=== PATIENT | male | born 1950 | race African-American/Black ===

== ENCOUNTER 2020-03-02 12:25 | Emergency (ER) | payer MEDICARE, MEDICAID, OTHER ==
[~2020-03-02] VITALS: Ht 167.6 cm; Wt 64.9 kg
[~2020-03-02 12:25] MED LIST: AMIO200T33 PO; ASPI-543 PO; ATO40T PO; DIGO1TAB35 PO; FURO40TA4 PO; LISI-275 PO; MAGN400C2 PO; METO25TA5 PO; SOTA80TA PO
[2020-03-02 13:06] VITALS: BP 150/89
== END 2020-03-02 14:48 | disposition home or self-care (01) ==
LOC: ER 12:25
DX: U07.1 COVID-19 (principal); J18.9 Pneumonia, unspecified organism; I11.0 Hypertensive heart disease with heart failure; E78.5 Hyperlipidemia, unspecified; I25.10 Atherosclerotic heart disease of native coronary artery without angina pectoris
CPT/HCPCS: 36415; 71045; 87070; 87426; 87880

== ENCOUNTER 2020-03-09 15:18 | Outpatient (CLI) | payer MEDICARE, MEDICAID ==
[2020-03-09 15:27] VITALS: BP 124/71
== END 2020-03-09 15:19 | disposition home or self-care (01) ==
LOC: ER 15:18
PROVIDERS: ATTEND Internal Medicine
DX: I13.0 Hypertensive heart and chronic kidney disease with heart failure and stage 1 through stage 4 chronic kidney disease, or unspecified chronic kidney disease (principal); N18.30 Chronic kidney disease, stage 3 unspecified; I50.43 Acute on chronic combined systolic (congestive) and diastolic (congestive) heart failure; I25.10 Atherosclerotic heart disease of native coronary artery without angina pectoris; E78.5 Hyperlipidemia, unspecified; E03.9 Hypothyroidism, unspecified; D50.9 Iron deficiency anemia, unspecified; Z79.899 Other long term (current) drug therapy

== ENCOUNTER 2020-04-07 07:50 | Inpatient (IN) | payer MEDICARE, MEDICAID, OTHER ==
[~2020-04-07] VITALS: Ht 167.6 cm; Wt 67.5 kg
[2020-04-07] MEDS ORDERED: SODIUM CHLORIDE 0.9% 1,000 ML IV ONE (08:45)
[2020-04-07 09:05] LABS: Basophils # (auto) 0.1 10 ^3/uL (0-0.2); Basophils % (auto) 1.2 % (0.0-2.0); Eosinophils # (auto) 0.3 10 ^3/uL (0-0.8); Eosinophils % (auto) 2.7 % (0.0-7.0); Hematocrit 33.3 % (41.0-53.0); Hemoglobin 10.6 g/dL (13.5-17.5); Lymphocytes % (auto) 20.8 % (10.0-50.0); Mean Corpuscular Hemoglobin 24.1 pg (28.0-32.0); Mean Corpuscular Hgb Conc. 31.9 g/dL (32.0-36.0); Mean Corpuscular Volume 75.6 fL (80.0-100.0); Monocytes # (auto) 0.8 10 ^3/uL (0-1.3); Monocytes % (auto) 8.7 % (0.0-12.0); Neutrophils # (auto) 6.3 10 ^3/uL (1.6-8.6); Neutrophils % (auto) 66.6 % (37.0-80.0); Nucleated Red Blood Cells % 0.1 %; Platelet Count (auto) 293 10^3/uL (140-450); Red Cell Distribution Width 19.8 % (11.8-14.3); White Blood Cell 9.5 10^3/uL (4.4-10.8)
[2020-04-07 09:10] LABS: INR 1.38 (0.9-1.15); Partial Thromboplastin Time 28.3 sec (23.0-31.2)
[2020-04-07 09:13] LABS: Albumin 2.7 g/dL (3.4-5.0); BUN/Creatinine Ratio 13.4; Calcium 8.2 mg/dL (8.5-10.1); Magnesium 1.6 mg/dL (1.6-2.6); Potassium 3.8 mmol/L (3.5-5.1)
[2020-04-07 09:22] LABS: Bilirubin, Total 0.5 mg/dL (0.2-1.0); Total Protein 6.6 g/dL (6.4-8.2)
[2020-04-07 10:51] LABS: Urine Bacteria NONE SEEN /hpf (None Seen); Urine Blood Negative /uL (Negative); Urine Hyaline Cast MANY /lpf (0 - 2); Urine Mucus FEW (None Seen); Urine Specific Gravity 1.018 (1.001-1.035); Urine WBC 7 /hpf (0 - 3)
[2020-04-07] MEDS ORDERED: IOHEXOL 350 MG/ML 100ML IJ ONE (11:00)
[2020-04-07] MEDS ORDERED: AZITHROMYCIN 500MG/ 250ML 250 ML IV ONE (11:45)
[2020-04-07] MEDS ORDERED: FUROSEMIDE 40 MG/4 ML VIAL IV ONE (11:45)
[2020-04-07] MEDS ORDERED: cefTRIAXone 1GM/50ML D5W 50 ML IV ONE (11:45)
[2020-04-07] MEDS ORDERED: ACETAMINOPHEN 500 MG TAB PO PRN (13:30)
[2020-04-07] MEDS ORDERED: hydrALAZINE HCL 20 MG/ML VL IV PRN (13:30)
[2020-04-07] MEDS ORDERED: ONDANSETRON HCL 4 MG/2 ML VIAL IV PRN (13:30)
[2020-04-07] MEDS ORDERED: MORPHINE SULF INJ 2 MG/ML SYRINGE 1ML IV PRN ×2 (13:30)
[2020-04-07] MEDS ORDERED: HYDROcodone-ACET 5/325MG TAB PO PRN (13:30)
[2020-04-07] MEDS ORDERED: NITROGLYCERIN 0.4 MG SL TAB SL PRN (13:30)
[2020-04-07] MEDS ORDERED: CARV6.2551 PO (18:03)
[2020-04-07] MEDS: SPIRONOLACTONE 25 MG TAB PO SCH (18:38)
[2020-04-07] MEDS ORDERED: METO-159 PO (18:39)
[2020-04-07] MEDS ORDERED: APIX5TAB PO (18:39)
[2020-04-07] MEDS: FUROSEMIDE 40 MG/4 ML VIAL IV SCH (18:39)
[2020-04-07] MEDS ORDERED: TAMS0.4C36 PO (18:39)
[2020-04-07] MEDS ORDERED: FURO80TA3 PO (18:39)
[2020-04-07] MEDS: ATORVASTATIN 20 MG TAB PO SCH (21:43)
[2020-04-07] MEDS: APIXABAN 5 MG TAB PO SCH (21:43)
[2020-04-07] MEDS: METOPROLOL TARTRATE 25 MG TAB PO SCH (21:43)
[2020-04-07 22:00] VITALS: BP 142/90
[2020-04-08 05:00] VITALS: BP 155/91
[2020-04-08] MEDS: SPIRONOLACTONE 25 MG TAB PO SCH (05:49)
[2020-04-08] MEDS: FUROSEMIDE 40 MG/4 ML VIAL IV SCH ×2 (05:49→17:39)
[2020-04-08 06:39] LABS: Basophils # (auto) 0 10 ^3/uL (0-0.2); Eosinophils # (auto) 0.3 10 ^3/uL (0-0.8); Hemoglobin 10.6 g/dL (13.5-17.5); Lymphocytes # (auto) 1.5 10 ^3/uL (0.4-5.4); Monocytes # (auto) 0.9 10 ^3/uL (0-1.3)
[2020-04-08 06:42] LABS: Basophils % (auto) 0.4 % (0.0-2.0); Eosinophils % (auto) 4.2 % (0.0-7.0); Hematocrit 32.7 % (41.0-53.0); Lymphocytes % (auto) 19.7 % (10.0-50.0); Mean Corpuscular Hemoglobin 24.6 pg (28.0-32.0); Mean Corpuscular Hgb Conc. 32.5 g/dL (32.0-36.0); Mean Corpuscular Volume 75.9 fL (80.0-100.0); Monocytes % (auto) 11.7 % (0.0-12.0); Neutrophils # (auto) 4.8 10 ^3/uL (1.6-8.6); Nucleated Red Blood Cells % 0.1 %; Platelet Count (auto) 309 10^3/uL (140-450); White Blood Cell 7.5 10^3/uL (4.4-10.8)
[2020-04-08 06:58] LABS: Potassium 3.8 mmol/L (3.5-5.1)
[2020-04-08 07:02] LABS: BUN/Creatinine Ratio 18.8; Calcium 8.7 mg/dL (8.5-10.1)
[2020-04-08 07:11] LABS: INR 1.44 (0.9-1.15); Partial Thromboplastin Time 30.5 sec (23.0-31.2)
[2020-04-08 09:00] VITALS: BP 142/77
[2020-04-08] MEDS: AMIODARONE HCL 200 MG TAB PO SCH (10:08)
[2020-04-08] MEDS: APIXABAN 5 MG TAB PO SCH ×2 (10:08→22:10)
[2020-04-08] MEDS: FAMOTIDINE 20 MG TAB PO SCH (10:09)
[2020-04-08] MEDS: LISINOPRIL 10 MG TAB PO SCH (10:09)
[2020-04-08] MEDS: ASCORBIC ACID 1,000 MG TAB PO SCH (10:09)
[2020-04-08] MEDS: METOPROLOL TARTRATE 25 MG TAB PO SCH ×2 (10:10→22:11)
[2020-04-08] MEDS ORDERED: ALBUTEROL SULF HFA 90MCG INH 200DOSE IN PRN (12:45)
[2020-04-08 13:00] VITALS: BP 133/82
[2020-04-08 17:00] VITALS: BP 124/74
[2020-04-08 21:52] VITALS: BP 142/88
[2020-04-08] MEDS ORDERED: BUDESONIDE (INHALATION) 180 MCG IH IN SCH (22:00)
[2020-04-08] MEDS: ATORVASTATIN 20 MG TAB PO SCH (22:11)
[2020-04-08] MEDS: DOXYCYCLINE 100 MG TAB/CAP PO SCH (22:12)
[2020-04-09 05:56] VITALS: BP 144/83
[2020-04-09] MEDS: FUROSEMIDE 40 MG/4 ML VIAL IV SCH ×2 (06:37→18:23)
[2020-04-09] MEDS ORDERED: IVERMECTIN 3 MG TAB PO ONE (07:00)
[2020-04-09 08:00] VITALS: BP 103/72
[2020-04-09 08:08] LABS: Albumin 2.5 g/dL (3.4-5.0); Calcium 8.8 mg/dL (8.5-10.1); Hematocrit 32.7 % (41.0-53.0); Hemoglobin 10.5 g/dL (13.5-17.5); Magnesium 1.9 mg/dL (1.6-2.6); Potassium 3.7 mmol/L (3.5-5.1)
[2020-04-09 08:14] LABS: INR 1.32 (0.9-1.15)
[2020-04-09 08:17] LABS: BUN/Creatinine Ratio 19.7; Bilirubin, Total 0.4 mg/dL (0.2-1.0); CRP High Sensitivity 5.87 mg/dL (< 0.3); Total Protein 6.4 g/dL (6.4-8.2)
[2020-04-09 09:00] VITALS: BP 127/80
[2020-04-09] MEDS: AMIODARONE HCL 200 MG TAB PO SCH (10:49)
[2020-04-09] MEDS: APIXABAN 5 MG TAB PO SCH ×2 (10:49→22:12)
[2020-04-09] MEDS: ZINC SULFATE 220mg CAP or TAB PO SCH (10:49)
[2020-04-09] MEDS: ASCORBIC ACID 1,000 MG TAB PO SCH (10:50)
[2020-04-09] MEDS: FAMOTIDINE 20 MG TAB PO SCH (10:50)
[2020-04-09] MEDS: METOPROLOL TARTRATE 25 MG TAB PO SCH ×2 (10:50→22:12)
[2020-04-09] MEDS: DOXYCYCLINE 100 MG TAB/CAP PO SCH ×2 (10:50→22:12)
[2020-04-09] MEDS: CHOLECALCIFEROL (VITD3) 2,000 UNIT CAP/TAB PO SCH (10:51)
[2020-04-09] MEDS: LISINOPRIL 10 MG TAB PO SCH (10:52)
[2020-04-09 13:00] VITALS: BP 136/80
[2020-04-09] MEDS ORDERED: POTASSIUM CHL 20 Meq TABLET PO ONE (14:45)
[2020-04-09 16:55] VITALS: BP 132/87
[2020-04-09 22:00] VITALS: BP 128/74
[2020-04-09] MEDS: ATORVASTATIN 20 MG TAB PO SCH (22:12)
[2020-04-10 05:14] VITALS: BP 157/98
[2020-04-10] MEDS: FUROSEMIDE 40 MG/4 ML VIAL IV SCH ×3 (05:55→18:55)
[2020-04-10 06:04] LABS: Calcium 8.7 mg/dL (8.5-10.1); Potassium 3.9 mmol/L (3.5-5.1)
[2020-04-10 06:06] LABS: BUN/Creatinine Ratio 19.1
[2020-04-10 09:07] VITALS: BP 136/86
[2020-04-10] MEDS ORDERED: POTASSIUM CHL 20 Meq TABLET PO SCH (10:00)
[2020-04-10] MEDS: ASCORBIC ACID 1,000 MG TAB PO SCH (11:32)
[2020-04-10] MEDS: APIXABAN 5 MG TAB PO SCH ×2 (11:32→22:00)
[2020-04-10] MEDS: FAMOTIDINE 20 MG TAB PO SCH (11:32)
[2020-04-10] MEDS: DOXYCYCLINE 100 MG TAB/CAP PO SCH ×2 (11:33→22:00)
[2020-04-10] MEDS: ZINC SULFATE 220mg CAP or TAB PO SCH (11:33)
[2020-04-10] MEDS: CHOLECALCIFEROL (VITD3) 2,000 UNIT CAP/TAB PO SCH (11:33)
[2020-04-10] MEDS: AMIODARONE HCL 200 MG TAB PO SCH (11:34)
[2020-04-10] MEDS: LISINOPRIL 10 MG TAB PO SCH (11:35)
[2020-04-10] MEDS: METOPROLOL TARTRATE 25 MG TAB PO SCH ×2 (11:35→22:00)
[2020-04-10] MEDS: Ensure HIGH Protein Chocolate 8oz Bottle PO SCH ×2 (12:00→18:14)
[2020-04-10 13:04] VITALS: BP 137/84
[2020-04-10 17:06] VITALS: BP 129/75
[2020-04-10 22:00] VITALS: BP 130/79
[2020-04-10] MEDS: ATORVASTATIN 20 MG TAB PO SCH (22:00)
[2020-04-11 05:00] VITALS: BP 132/73
[2020-04-11] MEDS: FUROSEMIDE 40 MG/4 ML VIAL IV SCH ×2 (06:05→17:17)
[2020-04-11 07:26] LABS: Basophils # (auto) 0.1 10 ^3/uL (0-0.2); Basophils % (auto) 0.9 % (0.0-2.0); Eosinophils # (auto) 0.3 10 ^3/uL (0-0.8); Eosinophils % (auto) 4.7 % (0.0-7.0); Hematocrit 33.7 % (41.0-53.0); Hemoglobin 11.2 g/dL (13.5-17.5); Lymphocytes # (auto) 1.8 10 ^3/uL (0.4-5.4); Lymphocytes % (auto) 25.6 % (10.0-50.0); Mean Corpuscular Hemoglobin 25.1 pg (28.0-32.0); Mean Corpuscular Hgb Conc. 33.2 g/dL (32.0-36.0); Mean Corpuscular Volume 75.5 fL (80.0-100.0); Monocytes % (auto) 13.6 % (0.0-12.0); Neutrophils # (auto) 3.9 10 ^3/uL (1.6-8.6); Neutrophils % (auto) 55.2 % (37.0-80.0); Nucleated Red Blood Cells % 0.1 %; Platelet Count (auto) 526 10^3/uL (140-450); Red Blood Cells 4.46 10^6/uL (4.5-5.90); White Blood Cell 7.1 10^3/uL (4.4-10.8)
[2020-04-11 07:43] LABS: BUN/Creatinine Ratio 17.8; Calcium 9.2 mg/dL (8.5-10.1); Potassium 4.1 mmol/L (3.5-5.1)
[2020-04-11] MEDS: Ensure HIGH Protein Chocolate 8oz Bottle PO SCH ×2 (08:00→12:00)
[2020-04-11 09:00] VITALS: BP 135/68
[2020-04-11] MEDS: ZINC SULFATE 220mg CAP or TAB PO SCH (10:00)
[2020-04-11] MEDS: CHOLECALCIFEROL (VITD3) 2,000 UNIT CAP/TAB PO SCH ×2 (10:00→11:16)
[2020-04-11] MEDS ORDERED: POTASSIUM EFFERVESENT TAB 25 MEQ PO SCH (10:00)
[2020-04-11] MEDS ORDERED: CHOLECALCIFEROL (VITD3) 1,000UNIT=25mCg TAB PO ONE (10:30)
[2020-04-11] MEDS: APIXABAN 5 MG TAB PO SCH (11:13)
[2020-04-11] MEDS: METOPROLOL TARTRATE 25 MG TAB PO SCH (11:14)
[2020-04-11] MEDS: AMIODARONE HCL 200 MG TAB PO SCH (11:15)
[2020-04-11] MEDS: LISINOPRIL 10 MG TAB PO SCH (11:15)
[2020-04-11] MEDS: FAMOTIDINE 20 MG TAB PO SCH (11:16)
[2020-04-11] MEDS: DOXYCYCLINE 100 MG TAB/CAP PO SCH (11:17)
[2020-04-11 16:40] VITALS: BP 135/68
[2020-04-11 17:00] VITALS: BP 124/71
[2020-04-12] MEDS ORDERED: CHOLECALCIFEROL (VITD3) 1,000UNIT=25mCg TAB PO SCH (10:00)
== END 2020-04-11 17:45 | disposition home or self-care (01) | DRG 177 ==
LOC: ER 07:50 → EDBD 07:50 → TELE 07:51 → TELE-WESTW 18:22 → TELE-CENTR 04-08 21:18
PROVIDERS: ADMIT Nurse Practitioner Acute Care; ATTEND Internal Medicine Nephrology
DX: U07.1 COVID-19 (principal); I50.43 Acute on chronic combined systolic (congestive) and diastolic (congestive) heart failure; I21.A1 Myocardial infarction type 2; J96.20 Acute and chronic respiratory failure, unspecified whether with hypoxia or hypercapnia; I13.0 Hypertensive heart and chronic kidney disease with heart failure and stage 1 through stage 4 chronic kidney disease, or unspecified chronic kidney disease; E44.0 Moderate protein-calorie malnutrition; D68.69 Other thrombophilia; G45.9 Transient cerebral ischemic attack, unspecified; J91.8 Pleural effusion in other conditions classified elsewhere; T82.118A Breakdown (mechanical) of other cardiac electronic device, initial encounter; I42.0 Dilated cardiomyopathy; E03.9 Hypothyroidism, unspecified; E78.5 Hyperlipidemia, unspecified; N18.30 Chronic kidney disease, stage 3 unspecified; D50.9 Iron deficiency anemia, unspecified; N40.0 Benign prostatic hyperplasia without lower urinary tract symptoms; I48.0 Paroxysmal atrial fibrillation; Z68.23 Body mass index [BMI] 23.0-23.9, adult; E55.9 Vitamin D deficiency, unspecified; R20.2 Paresthesia of skin; R80.9 Proteinuria, unspecified; I25.10 Atherosclerotic heart disease of native coronary artery without angina pectoris; M06.9 Rheumatoid arthritis, unspecified; Z79.01 Long term (current) use of anticoagulants; Z79.899 Other long term (current) drug therapy; Z82.3 Family history of stroke; Z82.49 Family history of ischemic heart disease and other diseases of the circulatory system; Z83.3 Family history of diabetes mellitus; Z87.01 Personal history of pneumonia (recurrent); Z95.2 Presence of prosthetic heart valve; Z95.810 Presence of automatic (implantable) cardiac defibrillator; Z88.0 Allergy status to penicillin; Z88.8 Allergy status to other drugs, medicaments and biological substances; Y71.2 Prosthetic and other implants, materials and accessory cardiovascular devices associated with adverse incidents; Y92.89 Other specified places as the place of occurrence of the external cause
CPT/HCPCS: 36415; 70450; 71045; 71046; 71275; 80048; 80053; 80061; 81001; 82306; 82728; 83605; 83615; 83735; 83880; 84443; 84484; 85014; 85018; 85025; 85379; 85610; 85730; 86141; 87040; 87426; 87804; 93005; 93306; 93886; 94640; 96361; 96365; 96368; 96375; 97116; 97163; 97530; 99291; G0378; J0696; J2405

== ENCOUNTER 2020-09-04 19:13 | Emergency (ER) | payer MEDICARE, MEDICAID ==
[~2020-09-04] VITALS: Ht 167.6 cm; Wt 65.8 kg
[~2020-09-04 19:13] MED LIST changes: +APIX5TAB PO; -ASPI-543 PO; -ATO40T PO; -DIGO1TAB35 PO; -FURO40TA4 PO; +FURO80TA3 PO; -LISI-275 PO; -MAGN400C2 PO; +METO-159 PO; -METO25TA5 PO; -SOTA80TA PO; +TAMS0.4C36 PO
[2020-09-04] MEDS ORDERED: LIDOCAINE HCL 100 MG/5ML (2%) SYRG INJ IV ONE (19:14)
[2020-09-04] MEDS ORDERED: CALCIUM CHLOR(10%) 100MG/ML 10ML SYRINGE IV ONE (19:14)
[2020-09-04] MEDS ORDERED: AMIODARONE HCL (50 MG/ ML) 3 ML VIAL IV ONE (19:14)
[2020-09-04] MEDS ORDERED: SODIUM BICARBONATE 8.4% INJ 50ML SYRINGE IV ONE (19:14)
[2020-09-04] MEDS ORDERED: EPINEPHrine HCL 1 MG/10 ML SYRG IV ONE (19:14)
[2020-09-04] MEDS ORDERED: SODIUM CHLORIDE 0.9% 1,000 ML IVB ONE (20:00)
[2020-09-04 22:10] LABS: Hemoglobin 12.7 g/dL (13.5-17.5); Mean Corpuscular Hemoglobin 23.1 pg (28.0-32.0); Mean Corpuscular Volume 74.6 fL (80.0-100.0); Red Blood Cells 5.49 10^6/uL (4.5-5.90); White Blood Cell 9.7 10^3/uL (4.4-10.8)
[2020-09-04 22:16] LABS: INR 1.56 (0.9-1.15); Partial Thromboplastin Time 24.2 sec (23.0-31.2)
[2020-09-04 22:20] LABS: Albumin 3.9 g/dL (3.4-5.0); Calcium 9.6 mg/dL (8.5-10.1)
[2020-09-04 22:27] LABS: BUN/Creatinine Ratio 18.6; Band Neutrophils % (manual) 0; Basophils % (manual) 0 (0.0-2.0); Blast Cells 0; Eosinophils % (manual) 0 (0-7); Metamyelocytes % 0; Myelocytes % 0; Promyelocytes % 0; Reactive Lymphocytes 0; Total Protein 8.1 g/dL (6.4-8.2)
[2020-09-04 22:30] LABS: Lactic Acid w/Reflex 7.9 mmol/L (0.4-2.0)
[2020-09-04 22:54] LABS: Lymphocytes % (manual) 5 (10.0-50.0); Monocytes % (manual) 5 (0-12)
[2020-09-04 22:59] LABS: Potassium 6.7 mmol/L (3.5-5.1)
[2020-09-04] MEDS ORDERED: DEXTROSE 50% SYRINGE 50 ML IV ONE (23:00)
[2020-09-04] MEDS ORDERED: DEXTROSE 10% 1,000 ML IV ONE (23:15)
[2020-09-04] MEDS ORDERED: DexAMETHasone INJECTION 10 MG in D5W 5% 50 ML IV ONE (23:15)
[2020-09-04] MEDS ORDERED: CALCIUM GLUC 1,000mg/50ml-NS 50 ML IV ONE (23:15)
[2020-09-04] MEDS ORDERED: DEXTROSE (50%) 50ML SYRG IV ONE (23:15)
[2020-09-04] MEDS ORDERED: SODIUM ZIRCONIUM CYCL 10 GM PAK PO ONE (23:15)
[2020-09-04] MEDS ORDERED: SODIUM BICARBONATE 8.4 % INJ 50ML VIAL IV ONE (23:15)
[2020-09-04] MEDS ORDERED: AZITHROMYCIN 500MG/ 250ML 250 ML IV ONE (23:15)
[2020-09-04] MEDS ORDERED: ASPirin-EC 325mg tab PO ONE (23:30)
[2020-09-05] MEDS ORDERED: NITROGLYCERIN 0.4 MG SL TAB SL PRN (01:45)
[2020-09-05] MEDS ORDERED: HYDROcodone-ACET 5/325MG TAB PO PRN (01:45)
[2020-09-05] MEDS ORDERED: ALBUTEROL SULF HFA 90MCG INH 200DOSE IN PRN (01:45)
[2020-09-05] MEDS ORDERED: ACETAMINOPHEN 500 MG TAB PO PRN (01:45)
[2020-09-05] MEDS ORDERED: ONDANSETRON HCL 4 MG/2 ML VIAL IV PRN (01:45)
[2020-09-05] MEDS ORDERED: MORPHINE SULFATE INJECTION 2 MG/ML SYRG IV PRN (01:45)
[2020-09-05] MEDS ORDERED: ACETAMINOPHEN 325 MG TAB PO PRN (01:45)
[2020-09-05] MEDS ORDERED: DOCUSATE SOD 100 MG CAP PO PRN (01:45)
[2020-09-05 02:18] VITALS: BP 145/99
[2020-09-05] MEDS ORDERED: NOREPINEPHRINE 8 MG/250ML KIT 250 ML IV ONE (02:53)
[2020-09-05] MEDS ORDERED: AMIODARONE 450mg/250ml AE 250 ML IV ONE (02:54)
[2020-09-05] MEDS ORDERED: EPINEPHrine HCL 1 MG/10 ML SYRG ONE (02:57)
[2020-09-05] MEDS ORDERED: SODIUM CHLOR 0.9% PF (SALINE LOCK) 10ML VIAL/SYR IV SCH (06:00)
[2020-09-05] MEDS ORDERED: ZINC SULFATE 220mg CAP or TAB PO SCH (10:00)
[2020-09-05] MEDS ORDERED: MULTIPLE VITAMIN TAB PO SCH (10:00)
[2020-09-05] MEDS ORDERED: FAMOTIDINE (10MG/ML) 2ML VL IV SCH (10:00)
[2020-09-05] MEDS ORDERED: ASCORBIC ACID 1,000 MG TAB PO SCH (10:00)
[2020-09-05] MEDS ORDERED: BUDESONIDE (INHALATION) 180 MCG IH IN SCH (10:00)
[2020-09-05] MEDS ORDERED: DOXYCYCLINE 100MG/250ML 250 ML IV SCH (10:00)
[2020-09-05] MEDS ORDERED: DexAMETHasone SOD PHOS 10MG/1ML VIAL INJ IV SCH (10:00)
[2020-09-05] MEDS ORDERED: HEPARIN SODIUM (PORCINE) 5000 UNITS/ML 1ML VIAL SC SCH (10:00)
[2020-09-05] MEDS ORDERED: CHOLECALCIFEROL (VITD3) 2,000 UNIT CAP/TAB PO SCH (10:00)
== END 2020-09-05 03:01 ==
LOC: EDSEX 19:13 → EDBD 19:13 → ER 19:13
DX: U07.1 COVID-19 (principal); I51.7 Cardiomegaly; K57.90 Diverticulosis of intestine, part unspecified, without perforation or abscess without bleeding; J90 Pleural effusion, not elsewhere classified; E87.2 Acidosis; E87.5 Hyperkalemia; N17.9 Acute kidney failure, unspecified; R06.03 Acute respiratory distress; E16.2 Hypoglycemia, unspecified; R77.8 Other specified abnormalities of plasma proteins; E78.5 Hyperlipidemia, unspecified; I10 Essential (primary) hypertension
CPT/HCPCS: 36415; 36600; 71045; 74176; 80053; 82728; 82805; 82962; 83605; 83690; 83735; 83880; 84484; 85007; 85027; 85379; 85610; 85730; 86141; 87040; 87426; 92950; 93005; 96361; 96365; 96375; 99291; J0171; J0282; J0456; J0610; J7030; J7040; J7042; J1100; J7060